=== PATIENT | female | born 1995 ===

== ENCOUNTER 2021-04-27 23:44 | Observation (INO) ==
[2021-04-28] MEDS ORDERED: SODIUM CHLORIDE 0.9% 1000ML 1,000 ML IV ONE (00:03)
[2021-04-28] MEDS ORDERED: METOCLOPRAMIDE HCL INJ 5 MG/ML 2 ML VIAL IV STA (00:03)
[2021-04-28] MEDS ORDERED: FAMOTIDINE 20MG IV PUSH 20 MG/5 ML SYR IV STA (00:03)
[2021-04-28] MEDS ORDERED: ACETAMINOPHEN 1,000 MG/100 ML VIAL IV STA (00:03)
[2021-04-28 00:29] LABS: Basophils # (auto) 0.02 K/uL (0-0.2); Basophils % (auto) 0.1 %; Eosinophils # (auto) 0.12 K/uL (0-0.5); Eosinophils % (auto) 0.9 %; Hematocrit (blood only) 38.5 % (37-47); Hemoglobin 13.1 g/dL (12.0-16.0); Immature Granulocytes # (auto) 0.02 K/uL (0.00-0.02); Immature Granulocytes % (auto) 0.1 %; Lymphocytes # (auto) 2.27 K/uL (1.2-3.4); Lymphocytes % (auto) 16.3 %; Mean Corpuscular Hemoglobin 28.5 pg (25-34); Mean Corpuscular Volume 83.7 fL (80-100); Mean Platelet Volume 11.8 fL (7.4-10.4); Monocytes # (auto) 0.82 K/uL (0.11-0.59); Monocytes % (auto) 5.9 %; Neutrophils # (auto) 10.65 K/uL (1.4-6.5); Neutrophils % (auto) 76.7 %; Platelet Count 439 K/uL (130-400); RDW Coefficient of Variation 13.4 % (11.5-14.5); RDW Standard Deviation 40.8 fL (36.4-46.3)
[2021-04-28 00:30] LABS: Appearance Urine Cloudy (Clear); Bacteria Urine Automated 2+ (Negative); Bilirubin Urine Negative (Negative); Blood Urine 2+ (Negative); Color Urine Yellow; Epithelial Cell Urine Auto >30 /lpf (0-5); Glucose Urine UA Negative (Negative); Ketones Urine Trace (Negative); Leukocyte Esterase Urine 2+ (Negative); Nitrite Urine Negative (Negative); Protein Urine Negative (Negative); RBC Urine Automated 0-4 /hpf (0-4); Specific Gravity Urine 1.017 (1.000-1.030); Urobilinogen Urine Negative (Negative); WBC Urine Automated >30 /hpf (0-5)
[2021-04-28 00:48] LABS: Alanine Aminotransferase 20 U/L (7-52); Albumin Globulin Ratio 1.3 (0.9-2); Albumin Level 4.4 gm/dl (3.4-5.0); Alkaline Phosphatase 76 U/L (34-104); Anion Gap 11 (3-11); Aspartate Aminotransferase 19 U/L (13-39); Bilirubin,Total 0.3 mg/dl (0.2-1.0); Blood Urea Nitrogen 5 mg/dl (6-23); Calcium 9.7 mg/dl (8.5-10.1); Carbon Dioxide 21 mmol/L (21-32); Chloride 103 mmol/L (98-107); Creatinine Clr Calc Pharmacy 176.8 ml/min; Est GFR (African American) > 150.0 ml/min; Est GFR (Non-African American) 136.4 ml/min; Globulin 3.4 gm/dl (2.5-4.0); Glucose 100 mg/dl (70-99(Fasting)); Lipase 11 U/L (11-82); Potassium 3.2 mmol/L (3.5-5.1); Sodium 135 mmol/L (136-145); Total Protein 7.8 gm/dl (6.0-8.3)
--- NOTE | 2021-04-28 01:19 | Emergency Department Note ---
History of Present Illness General Chief complaint: Flank Pain Stated complaint: SEVERE BACK AND ABD PAINS, 8 WKS PREG Time Seen by Provider: 04/27/21 23:57 History of Present Illness Maximum Pain Intensity: 1 This 25-year-old female patient currently about 8 weeks with twins pre sents to the emergency department today for evaluation of right upper quadrant and epigastric abdominal pain which radiates toward the back. This is began about 8 PM this evening. She ate a cold cut sandwich at about 4 PM. She states she did not have anything else to eat or drink before the onset of the pain. She reports nausea without vomiting. No history of similar symptoms in the past. She denies any fever or chills. No chest pain or shortness of breath. No dysuria, urinary frequency, urinary hesitancy, hematuria. She has not taken any medications for her symptoms. Allergies Allergy/AdvReac Type Severity Reaction Status Date / Time house dust Allergy Mild sneeze Verified 04/28/21 03:11 Past Med/Surg History Medical History First trimester Social History Smoking Status: Never smoker Second Hand Exposure: No; Do You Dip or Chew Tobacco: No; Tobacco Cessation Education Requested by Patient: No Hx Alcohol Use: No Hx Substance Use: No Preferred Language: Malian Communication Ability: Effective Foil Spinner Required: No Beliefs That Will Affect Care: None Current Living Situation: Significant Other Feels Safe at Home: Yes Safety Concerns: Feels Safe At This Time Assistive Devices: None Review of Systems A total of 10 systems reviewed and were otherwise negative Physical Exam Vital Signs Vital Signs - 24 hr 04/27/21 23:48 04/28/21 00:59 04/28/21 01:03 Temperature 36.5 C Temperature Source Temporal Artery Scan Pulse Rate 76 66 Pulse Rate [Left Finger] 66 Respiratory Rate 16 20 18 Respiratory Effort / Characteristics Non-Labored Spontaneous Respiratory Depth Normal Blood Pressure 135/81 Blood Pressure [Left Arm] 104/64 Blood Pressure Mean 99 Blood Pressure Mean [Left Arm] 77 Blood Pressure Position Sitting Pulse Oximetry 98 100 99 Oxygen Delivery Method Room Air Room Air Room Air Sepsis Recent Fever Within 48 Hours No Sepsis New/Unexplained Change in Mental Status N/A Sepsis Action Taken by Nursing No Action Required 04/28/21 01:30 04/28/21 02:41 Temperature Temperature Source Pulse Rate Pulse Rate [Left Finger] 66 66 Respiratory Rate 20 Respiratory Effort / Characteristics Respiratory Depth Blood Pressure Blood Pressure [Left Arm] 108/63 100/65 Blood Pressure Mean Blood Pressure Mean [Left Arm] 78 76 Blood Pressure Position Pulse Oximetry 97 93 Oxygen Delivery Method Room Air Room Air Sepsis Recent Fever Within 48 Hours Sepsis New/Unexplained Change in Mental Status Sepsis Action Taken by Nursing VITALS: Vitals are noted on the nurse's note and reviewed by myself. Vital signs stable. GENERAL: This is a 25-year-old female, in no acute distress, nondiaphoretic, well-developed well-nourished. SKIN: The skin was without rashes, erythema, edema, or bruising. There is no tenting of the skin. Capillary refill less than 2 seconds. HEAD: Normocephalic atraumatic. EYES: Conjunctivae without injection, sclerae without icterus. NECK: Supple without nuchal rigidity. No lymphadenopathy. No JVD. HEART: Regular rate and rhythm without murmurs gallops or rubs. LUNGS: Clear to auscultation bilaterally without wheezes, rales or rhonchi. No retractions or accessory muscle use. ABDOMEN: Positive bowel sounds x 4. Epigastric and RUQ tenderness to palpation. Abdomen otherwise soft, nontender, without masses or organomegaly. Looney's sign positive. No guarding or rebound tenderness. MUSCULOSKELETAL: No muscle atrophy, erythema, or edema noted. Full range of motion without joint tenderness in all extremities. No tenderness to palpation. Normal gait. Strength 5/5 throughout. NEURO: Patient was alert and oriented to person place and time. No focal neurological deficits. Course Course The patient was seen and evaluated as above. An order was placed for continuous cardiac monitoring. The monitor shows a normal sinus rhythm at a rate of 66 bpm. IV access obtained, labs drawn. Imaging performed and reviewed by myself and radiologist as noted. Labs reviewed by myself. I discussed the findings with the patient at bedside. I discussed the case with my attending. I discussed case with the manager rn case I discussed the case with Dr. Parr, [facility] physician. He requested I speak with OB in case they would wish to admit this patient in the setting of her . I discussed the case with Dr. Saravia, SANDWICH MACHINE OPERATOR broadcast operations technician. He recommends the patient be admitted to the medicine service and will be happy to consult due to the early . I notified Dr. Parr. He was agreeable and will see the patient for admission. Administered Medications Lactated Ringer's (Lr) 1,000 mls @ 80 mls/hr IV .[id number] ONE Stop: 04/28/21 15:19 Last Admin: 04/28/21 04:02 Dose: 80 mls/hr Documented by: [id number] Discontinued Medications Sodium Chloride (Nss 1000ml) 1,000 mls @ 999 mls/hr IV .[id number] ONE Stop: 04/28/21 01:03 Last Infusion: 04/28/21 02:14 Dose: 0 mls/hr Documented by: [id number] Admin: 04/28/21 00:33 Dose: 999 mls/hr Documented by: [id number] Acetaminophen (Ofirmev) 1,000 mg in 100 mls @ 400 mls/hr IV NOW STA Stop: 04/28/21 00:17 Last Infusion: 04/28/21 01:07 Dose: 0 mls/hr Documented by: [id number] Admin: 04/28/21 00:32 Dose: 400 mls/hr Documented by: [id number] Famotidine (Pepcid 20mg Iv Push) 20 mg in 5 mls @ 2.5 mls/min IV NOW STA Stop: 04/28/21 00:04 Last Admin: 04/28/21 00:32 Dose: 2.5 mls/min Documented by: [id number] Metoclopramide HCl (Metoclopramide Hcl Inj 5 Mg/Ml 2 Ml Vial) 10 mg IV NOW STA Stop: 04/28/21 00:04 Last Admin: 04/28/21 00:32 Dose: 10 mg Documented by: [id number] Potassium Chloride (Potassium Chloride Crtab 20 Meq Tabcr) 40 meq PO NOW STA Stop: 04/28/21 02:28 Last Admin: 04/28/21 02:39 Dose: 40 meq Documented by: [id number] Medical Decision Making Differential Diagnosis Etiologies such as appendicitis, diverticulitis, obstruction, inflammatory bowel disease, renal colic, PUD, biliary pathology, pancreatitis, mesenteric is chemia, aortic pathology, infections, genitourinary, UTI, perforated viscus, as well as others were entertained. Medical Records Attestation: I reviewed the patient's medical records. Home Medications Current Medication List: was personally reviewed by me Laboratory Data Attestation: I reviewed the patient's lab results. Mild leukocytosis of 13,000. No anemia or thrombocytopenia. Renal, hepatic function and electrolytes without significant abnormality. Lipase 11. Initial urinalysis appears to be contaminated specimen. Repeat urinalysis clear, trace leukocyte esterase, 1+ ketones, no bacteria. Result diagrams: 04/28/21 00:20 04/28/21 00:20 Lab Results 04/28/21 04/28/21 04/28/21 Range/Units 00:20 00:20 00:20 WBC 13.90 H (4.8-10.8) K/uL RBC 4.60 (4.2-5.4) M/uL Hgb 13.1 (12.0-16.0) g/dL Hct 38.5 (37-47) % MCV 83.7 (80-100) fL MCH 28.5 (25-34) pg MCHC 34.0 (32-36) g/dL RDW Std Deviation 40.8 (36.4-46.3) fL RDW Coeff of Santhosh 13.4 (11.5-14.5) % Plt Count 439 H (130-400) K/uL MPV 11.8 H (7.4-10.4) fL Immature Gran % (Auto) 0.1 % Neut % (Auto) 76.7 % Lymph % (Auto) 16.3 % [place] % (Auto) 5.9 % Eos % (Auto) 0.9 % Baso % (Auto) 0.1 % Neut # (Auto) 10.65 H (1.4-6.5) K/uL Lymph # (Auto) 2.27 (1.2-3.4) K/uL [place] # (Auto) 0.82 H (0.11-0.59) K/uL Eos # (Auto) 0.12 (0-0.5) K/uL Baso # (Auto) 0.02 (0-0.2) K/uL Immature Gran # (Auto) 0.02 (0.00-0.02) K/uL Sodium 135 L (136-145) mmol/L Potassium 3.2 L (3.5-5.1) mmol/L Chloride 103 (98-107) mmol/L Carbon Dioxide 21 (21-32) mmol/L Anion Gap 11 (3-11) BUN 5 L (6-23) mg/dl Creatinine 0.50 L (0.6-1.2) mg/dl Est Cr Clr Drug Dosing 176.8 ml/min Est GFR ( Amer) > 150.0 ml/min Est GFR (Non-Af Amer) 136.4 ml/min BUN/Creatinine Ratio 10.0 (10-20) Glucose 100 H (70-99(Fasting)) mg/dl Calcium 9.7 (8.5-10.1) mg/dl Magnesium (1.7-2.4) mg/dl Total Bilirubin 0.3 (0.2-1.0) mg/dl AST 19 (13-39) U/L ALT 20 (7-52) U/L Alkaline Phosphatase 76 (34-104) U/L Total Protein 7.8 (6.0-8.3) gm/dl Albumin 4.4 (3.4-5.0) gm/dl Globulin 3.4 (2.5-4.0) gm/dl Albumin/Globulin Ratio 1.3 (0.9-2) Lipase 11 (11-82) U/L Urine Color Yellow Urine Appearance Cloudy A (Clear) Urine pH 6.0 (4.5-7.5) Ur Specific [place] 1.017 (1.000-1.030) Urine Protein Negative (Negative) Urine Glucose (UA) Negative (Negative) Urine Ketones Trace H (Negative) Urine Blood 2+ H (Negative) Urine Nitrite Negative (Negative) Urine Bilirubin Negative (Negative) Urine Urobilinogen Negative (Negative) Ur Leukocyte Esterase 2+ H (Negative) Urine WBC (Auto) >30 H (0-5) /hpf Urine RBC (Auto) 0-4 (0-4) /hpf U Hyaline Cast (Auto) 5-10 H (0-5) /lpf U Epithel Cells (Auto) >30 H (0-5) /lpf Urine Bacteria (Auto) 2+ H (Negative) 04/28/21 Range/Units 00:20 WBC (4.8-10.8) K/uL RBC (4.2-5.4) M/uL Hgb (12.0-16.0) g/dL Hct (37-47) % MCV (80-100) fL MCH (25-34) pg MCHC (32-36) g/dL RDW Std Deviation (36.4-46.3) fL RDW Coeff of Santhosh (11.5-14.5) % Plt Count (130-400) K/uL MPV (7.4-10.4) fL Immature Gran % (Auto) % Neut % (Auto) % Lymph % (Auto) % [place] % (Auto) % Eos % (Auto) % Baso % (Auto) % Neut # (Auto) (1.4-6.5) K/uL Lymph # (Auto) (1.2-3.4) K/uL [place] # (Auto) (0.11-0.59) K/uL Eos # (Auto) (0-0.5) K/uL Baso # (Auto) (0-0.2) K/uL Immature Gran # (Auto) (0.00-0.02) K/uL Sodium (136-145) mmol/L Potassium (3.5-5.1) mmol/L Chloride (98-107) mmol/L Carbon Dioxide (21-32) mmol/L Anion Gap (3-11) BUN (6-23) mg/dl Creatinine (0.6-1.2) mg/dl Est Cr Clr Drug Dosing ml/min Est GFR ( Amer) ml/min Est GFR (Non-Af Amer) ml/min BUN/Creatinine Ratio (10-20) Glucose (70-99(Fasting)) mg/dl Calcium (8.5-10.1) mg/dl Magnesium 1.8 (1.7-2.4) mg/dl Total Bilirubin (0.2-1.0) mg/dl AST (13-39) U/L ALT (7-52) U/L Alkaline Phosphatase (34-104) U/L Total Protein (6.0-8.3) gm/dl Albumin (3.4-5.0) gm/dl Globulin (2.5-4.0) gm/dl Albumin/Globulin Ratio (0.9-2) Lipase (11-82) U/L Urine Color Urine Appearance (Clear) Urine pH (4.5-7.5) Ur Specific [place] (1.000-1.030) Urine Protein (Negative) Urine Glucose (UA) (Negative) Urine Ketones (Negative) Urine Blood (Negative) Urine Nitrite (Negative) Urine Bilirubin (Negative) Urine Urobilinogen (Negative) Ur Leukocyte Esterase (Negative) Urine WBC (Auto) (0-5) /hpf Urine RBC (Auto) (0-4) /hpf U Hyaline Cast (Auto) (0-5) /lpf U Epithel Cells (Auto) (0-5) /lpf Urine Bacteria (Auto) (Negative) Imaging Data Radiologist's Impression: US RUQ: Mildly distended gallbladder. No wall thickening or pericholecystic fluid. Gallstone in the fundus of the gallbladder. Sludge. Negative sonographic Looney sign. 1 cm echogenic focus in the any hepatis region. Unclear location. Possible stone within the cystic duct versus echogenic material within a bowel loop. Dilated common duct up to 8.9 mm. Correlate for biliary obstruction and could consider MRCP. No right hydronephrosis Radiologist: Matt Muniz M.D. Blood Pressure Blood Pressure Findings: Normal blood pressure MDM Narrative This 25-year-old female patient presents to the emergency department today in the setting of early for evaluation of epigastric and right upper quadrant abdominal pain. This began suddenly at around 8 PM. Patient's pain was controlled with IV acetaminophen. She was medicated with Pepcid and Reglan as well. Patient was hydrated IV fluids. Ultrasound concerning for possible stone within the cystic duct versus echogenic material within a bowel loop. Common bile duct is dilated up to 8.9 mm. The gallbladder is mildly distended with no thickening or pericholecystic fluid. There is a gallstone in the fundus of the gallbladder with sludge noted. Concern for gallbladder disease as the cause of the patient's symptoms. She will be admitted to the hospitalist service for ongoing evaluation of her symptoms. Please see hospitalist dictation regarding ongoing management and care of this patient. The chart was completed utilizing [employer] voice recognition software. Grammatical errors, random word insertions, pronoun errors, and incomplete sentences are an occasional consequence of this system due to software limitations, ambient noise, and hardware issues. Any formal questions or c oncerns about the content, text, or information contained within the body of this dictation should be directly addressed to the provider for clarification. Impression & Plan Biliary colic, Abdominal pain, Nausea & vomiting Discharge Plan Visit Data Chief Complaint: Flank Pain Stated Complaint: SEVERE BACK AND ABD PAINS, 8 WKS PREG ED Provider: Ashley Becerril ED Midlevel Provider: Marisol Marquez Discharge Problem: Biliary colic, Abdominal pain, Nausea & vomiting Patient Disposition: Admitted As Inpatient Discharge Instructions Interventions: ED Discharge Assessment Last Done: 04/28/21 04:52
[2021-04-28] MEDS ORDERED: POTASSIUM CHLORIDE CRTAB 20 MEQ TABCR PO STA (02:27)
--- NOTE | 2021-04-28 02:27 | History & Physical Report ---
Date of Service April 28, 2021 Assessment & Plan (1) Biliary colic: Plan: Rule out CBD obstruction No sepsis for now 8 weeks AOG Hypokalemia secondary to emesis OBS GMF Bowel rest for now MRCP if okay with OB service Surgery consult Re: Biliary colic (although conservative management likely to be advised given patient's first trimester .) Replace potassium DVT prophylaxis. SCDs Full code Patient partner requesting update from providers. Mr. Felipe Wei, contact #[phone]. Case discussed with Dr. Calero (watermaster career information specialist). Okay to go for MRI from OB standpoint. Text document was generated using [employer] voice recognition software. It may contain grammatical or spelling errors. Kindly contact undersigned for clarification of any documentation item in question. History of Present Illness Chief Complaint: Abdominal pain Primary Care Provider: Andrzej Gray MD (Patient has not met him.) History obtained from patient, family, and records. No significant medical history. Patient currently 8 weeks with twins. Outpatient ultrasound done last week at [facility] after positive outpatient test first week of April, as per patient. No prior checkups. Last night, patient noted achy upper abdominal discomfort going to the back followed by nausea and emesis. Had a cold cut sandwich in the afternoon. No chest pain, no S OB, no fever, no chills. No prior episodes in the past. Patient brought to the ER by her partner for evaluation. Medical History as above Surgical History : None Family History : DM Personal/Social history : Non-smoker, no EtOH intake, childcare center employee Allergies Allergy/AdvReac Type Severity Reaction Status Date / Time house dust Allergy Mild sneeze Verified 04/28/21 03:11 Past Med/Surg History Medical History First trimester Social History Smoking Status: Never smoker Second Hand Exposure: No; Do You Dip or Chew Tobacco: No; Tobacco Cessation Education Requested by Patient: No Hx Alcohol Use: No Hx Substance Use: No Preferred Language: Prydeinig Communication Ability: Effective Handy Man Required: No Beliefs That Will Affect Care: None Current Living Situation: Significant Other Feels Safe at Home: Yes Safety Concerns: Feels Safe At This Time Assistive Devices: None Review of Systems Review of Systems: As per HPI, all 10 systems reviewed, all other ROS negative Physical Exam Physical Exam: GENERAL: Comfortable, pleasant, obese, no respiratory distress SKIN: Normal color, warm HEENT: bespectacled, pink palpebral conjunctivae, no ptosis, dry buccal mucosa NECK : Supple, no tenderness CHEST : CTA, no tenderness HEART : RRR, no obvious murmurs ABDOMEN: Some distention, minimal epigastric tenderness EXTREMITIES : No LE swelling/tenderness, no other conspicuous deformities noted NEUROLOGIC : Coherent, no facial asymmetry, no other gross focality Results & Data Results & Data ([facility]) Vital Signs (Past 12 Hours) Vital Signs Temp Pulse Pulse Resp BP BP Pulse Ox 04/28/21 01:03 66 18 99 04/28/21 00:59 66 20 104/64 100 04/27/21 23:48 36.5 C 76 16 135/81 98 Laboratory Results Laboratory Results WBC 13.90 K/uL (4.8-10.8) H 04/28/21 00:20 RBC 4.60 M/uL (4.2-5.4) 04/28/21 00:20 Hgb 13.1 g/dL (12.0-16.0) 04/28/21 00:20 Hct 38.5 % (37-47) 04/28/21 00:20 MCV 83.7 fL (80-100) 04/28/21 00:20 MCH 28.5 pg (25-34) 04/28/21 00:20 MCHC 34.0 g/dL (32-36) 04/28/21 00:20 RDW Std Deviation 40.8 fL (36.4-46.3) 04/28/21 00:20 RDW Coeff of Santhosh 13.4 % (11.5-14.5) 04/28/21 00:20 Plt Count 439 K/uL (130-400) H 04/28/21 00:20 MPV 11.8 fL (7.4-10.4) H 04/28/21 00:20 Immature Gran % (Auto) 0.1 % 04/28/21 00:20 Neut % (Auto) 76.7 % 04/28/21 00:20 Lymph % (Auto) 16.3 % 04/28/21 00:20 [place] % (Auto) 5.9 % 04/28/21 00:20 Eos % (Auto) 0.9 % 04/28/21 00:20 Baso % (Auto) 0.1 % 04/28/21 00:20 Neut # (Auto) 10.65 K/uL (1.4-6.5) H 04/28/21 00:20 Lymph # (Auto) 2.27 K/uL (1.2-3.4) 04/28/21 00:20 [place] # (Auto) 0.82 K/uL (0.11-0.59) H 04/28/21 00:20 Eos # (Auto) 0.12 K/uL (0-0.5) 04/28/21 00:20 Baso # (Auto) 0.02 K/uL (0-0.2) 04/28/21 00:20 Immature Gran # (Auto) 0.02 K/uL (0.00-0.02) 04/28/21 00:20 Sodium 135 mmol/L (136-145) L 04/28/21 00:20 Potassium 3.2 mmol/L (3.5-5.1) L 04/28/21 00:20 Chloride 103 mmol/L (98-107) 04/28/21 00:20 Carbon Dioxide 21 mmol/L (21-32) 04/28/21 00:20 Anion Gap 11 (3-11) 04/28/21 00:20 BUN 5 mg/dl (6-23) L 04/28/21 00:20 Creatinine 0.50 mg/dl (0.6-1.2) L 04/28/21 00:20 Est Cr Clr Drug Dosing 176.8 ml/min 04/28/21 00:20 Est GFR ( Amer) > 150.0 ml/min 04/28/21 00:20 Est GFR (Non-Af Amer) 136.4 ml/min 04/28/21 00:20 BUN/Creatinine Ratio 10.0 (10-20) 04/28/21 00:20 Glucose 100 mg/dl (70-99(Fasting)) H 04/28/21 00:20 Calcium 9.7 mg/dl (8.5-10.1) 04/28/21 00:20 Total Bilirubin 0.3 mg/dl (0.2-1.0) 04/28/21 00:20 AST 19 U/L (13-39) 04/28/21 00:20 ALT 20 U/L (7-52) 04/28/21 00:20 Alkaline Phosphatase 76 U/L (34-104) 04/28/21 00:20 Total Protein 7.8 gm/dl (6.0-8.3) 04/28/21 00:20 Albumin 4.4 gm/dl (3.4-5.0) 04/28/21 00:20 Globulin 3.4 gm/dl (2.5-4.0) 04/28/21 00:20 Albumin/Globulin Ratio 1.3 (0.9-2) 04/28/21 00:20 Lipase 11 U/L (11-82) 04/28/21 00:20 Urine Color Yellow 04/28/21 00:20 Urine Appearance Cloudy (Clear) A 04/28/21 00:20 Urine pH 6.0 (4.5-7.5) 04/28/21 00:20 Ur Specific [place] 1.017 (1.000-1.030) 04/28/21 00:20 Urine Protein Negative (Negative) 04/28/21 00:20 Urine Glucose (UA) Negative (Negative) 04/28/21 00:20 Urine Ketones Trace (Negative) H 04/28/21 00:20 Urine Blood 2+ (Negative) H 04/28/21 00:20 Urine Nitrite Negative (Negative) 04/28/21 00:20 Urine Bilirubin Negative (Negative) 04/28/21 00:20 Urine Urobilinogen Negative (Negative) 04/28/21 00:20 Ur Leukocyte Esterase 2+ (Negative) H 04/28/21 00:20 Urine WBC (Auto) >30 /hpf (0-5) H 04/28/21 00:20 Urine RBC (Auto) 0-4 /hpf (0-4) 04/28/21 00:20 U Hyaline Cast (Auto) 5-10 /lpf (0-5) H 04/28/21 00:20 U Epithel Cells (Auto) >30 /lpf (0-5) H 04/28/21 00:20 Urine Bacteria (Auto) 2+ (Negative) H 04/28/21 00:20 Diagnostic Findings Gallbladder ultrasound initial read: Mildlydistended gallbladder. No wall thickening or pericholecystic fluid. Gallstone in the fundus of the gallbladder. Sludge. Negative sonographic Murphysign. 1 cmechogenic focus in the any hepatis region. Unclear location. Possible stone within the cystic duct versus echogenic material within a bowel loop. Dilated common duct up to 8.9 mm. Correlate for biliaryobstruction and could consider MRCP. No right hydronephrosis
[2021-04-28 02:49] LABS: Appearance Urine Clear (Clear); Bacteria Urine Automated Negative (Negative); Bilirubin Urine Negative (Negative); Blood Urine Negative (Negative); Cast Urine Automated 0 /lpf (0-5); Color Urine Yellow; Glucose Urine UA Negative (Negative); Ketones Urine 1+ (Negative); Leukocyte Esterase Urine Trace (Negative); Nitrite Urine Negative (Negative); Protein Urine Negative (Negative); RBC Urine Automated 0-4 /hpf (0-4); Specific Gravity Urine 1.009 (1.000-1.030); Urobilinogen Urine Negative (Negative)
[2021-04-28] MEDS ORDERED: ACETAMINOPHEN W/CODEINE #3 1 TAB PO PRN (02:50)
[2021-04-28] MEDS ORDERED: LACTATED RINGER'S 1,000 ML IV ONE (02:50)
[2021-04-28] MEDS ORDERED: ONDANSETRON INJ 2 MG/ML 2 ML VIAL IV PRN (02:50)
[2021-04-28] MEDS ORDERED: diphenhydrAMINE 50 MG/ML VIAL IV PRN (02:50)
[2021-04-28] MEDS ORDERED: MoRPHine SULFATE 2 MG/ML CARP IV PRN (02:50)
[2021-04-28] MEDS ORDERED: ACETAMINOPHEN 325 MG TAB PO PRN (05:17)
--- NOTE | 2021-04-28 07:13 | Ultrasound Report ---
US abdomen limited HISTORY: 25 years-old Female RUQ/epigastric pain acute right upper quadrant abdominal pain COMPARISON: None TECHNIQUE: Multiple real-time sonographic images of the abdominal right upper quadrant were obtained assessing grayscale appearance and color flow FINDINGS: The pancreas is mostly obscured by bowel gas. The liver is unremarkable. The gallbladder is distended measuring up to 12.1 cm in length and is sludge-filled. There is a shadowing 1.5 cm calculus within the gallbladder fundus. No gallbladder wall thickening or pericholecystic fluid identified. Negative sonographic Looney's sign. The common bile duct is dilated measuring up to 9 mm. There is a 1.1 cm echogenic shadowing structure noted within the any hepatis posterior to the gallbladder neck. The imaged right kidney is unremarkable without hydronephrosis. IMPRESSION: 1. Distended sludge-filled gallbladder with cholelithiasis. No definitive sonographic evidence of acu te cholecystitis. Findings could be correlated with nuclear medicine hepatobiliary scan. 2. Dilated common bile duct with possible stone within the cystic duct. Correlation with the ordered MRCP study of same day is recommended. ACT 112: Negative or not required by law. The above report was generated using voice recognition software. It may contain grammatical, syntax o r spelling errors. Electronically signed by: Deejay Canas M.D. 04/28/2021 7:12 AM
--- NOTE | 2021-04-28 11:32 | Surgery Consultation ---
Date of Consultation April 28, 2021 Assessment & Plan (1) Abdominal pain: (2) Nausea & vomiting: (3) Biliary colic: 25 year-old female who is currently 8 weeks with twins presented to ED last evening with upper abdominal pain, nausea and vomiting that started yesterday afternoon. Ate turkey, cheese sandwhich with mayonnaise and had peanut butter with apples prior. Mild leukocytosis of 13k. Ultrasound showing distended gallbladder with sludge and stones however no signs of acute cholecystitis, CBD dilated at 9 mm with questions of possible cyst duct stone. T. bili, lfts, alk phos all wnl. Abdominal examination completely benign this morning. Pain resolved. Plan: MRCP ordered this am given ultrasound findings Dr. Camilo discussed with patient that if she were to continue to have biliary colic and pain the best time to do surgery would be during her second trimester for less risk to the fetuses. Discussed she will need to adhere to strict low fat diet to prevent acute cholecystitis and recurrent biliary colic and pain. Will await MRCP results Continue medical management Dr. Lorenzo covering this weekend. Dr. Camilo has seen and examined pt, agrees with above. Supervising Physician Co-Signing Physician Notes I have seen and examined the patient and agree with the physical exam, assessment, and plan. Briefly, this is a 25-year-old woman, 8 weeks with twin gestation, who presents with what appears to be biliary colic. Her pain has completely resolved. MRCP demonstrated equivocal finding for acute cholecystitis. As her pain has completely resolved, I do not believe she has cholecystitis. We will continue medical management for now. History of Present Illness Reason for Consultation: biliary colic, abdominal pain Requesting Physician: Blas Drake MD Attending Physician: Brielle Romero DO History of Present Illness Gayle is a pleasant 25 year-old female who is 8 weeks with twins who presented to emergency department with complaint of RUQ abdominal pain with associated nausea and vomiting that started yesterday afternoon. States she ate a turkey,cheese sandwich with small amount of mayonnaise for lunch and then developed pain. Nothing seemed to make the pain better. Vomited on her way to the hospital. States she has had some vomiting with foods in past but unsure if this was due to being . No change in bowel habits. No difficulty urinating. She had an ultrasound which showed distended gallbladder with sludge and stones and dilated CBD at 9 mm with questions of possible stone in cystic duct. Mild leukocytosis of 13K. t.bili and lfts wnl. MRCP ordered for this morning. States she is feeling good now and the abdominal pain, nausea, and vomiting have completely resolved. States they gave her tylenol and she has not had any more pain. No fevers or chills. Allergies Allergy/AdvReac Type Severity Reaction Status Date / Time house dust Allergy Mild sneeze Verified 04/28/21 03:11 Patient History Medical History First trimester Social History Smoking Status: Never smoker Second Hand Exposure: No; Do You Dip or Chew Tobacco: No; Tobacco Cessation Education Requested by Patient: No Hx Alcohol Use: No Hx Substance Use: No Preferred Language: Beninese Communication Ability: Effective Certified Flight Instructor Required: No Beliefs That Will Affect Care: None Current Living Situation: Significant Other Feels Safe at Home: Yes Safety Concerns: Feels Safe At This Time Assistive Devices: None Review of Systems Review of Systems: All systems reviewed & are unremarkable except as noted in HPI & below Physical Exam Constitutional: WD/WN, vitals as above no acute distress and not ill appearing Neck: normal visual inspection and trachea midline Respiratory: normal respiratory effort, lungs clear to auscultation Cardiovascular: RRR, no murmur, no edema Gastrointestinal (Abdomen): Inspection/Auscultation: abdomen normal to inspection; abdomen not distended Percussion/Palpation: abdomen soft; abdomen nontender, no guarding and abdomen not rigid Skin: no rashes, warm and dry no jaundice Psychiatric: A+Ox3, euthymic affect Results & Data ([facility]) Vital Signs (Past 12 Hours) Vital Signs Temp Pulse Pulse Resp BP BP Pulse Ox 04/28/21 07:30 36.8 C 67 16 99/63 L 98 04/28/21 05:23 36.6 C 66 16 122/77 100 04/28/21 05:18 36.6 C 66 16 122/77 100 04/28/21 02:41 66 20 100/65 93 04/28/21 01:30 66 108/63 97 04/28/21 01:03 66 18 99 04/28/21 00:59 66 20 104/64 100 04/27/21 23:48 36.5 C 76 16 135/81 98 Laboratory Results 04/28/21 04/28/21 04/28/21 Range/Units Unknown Unknown 00:20 WBC (4.8-10.8) K/uL RBC (4.2-5.4) M/uL Hgb (12.0-16.0) g/dL Hct (37-47) % MCV (80-100) fL MCH (25-34) pg MCHC (32-36) g/dL RDW Std Deviation (36.4-46.3) fL RDW Coeff of Santhosh (11.5-14.5) % Plt Count (130-400) K/uL MPV (7.4-10.4) fL Immature Gran % (Auto) % Neut % (Auto) % Lymph % (Auto) % [place] % (Auto) % Eos % (Auto) % Baso % (Auto) % Neut # (Auto) (1.4-6.5) K/uL Lymph # (Auto) (1.2-3.4) K/uL [place] # (Auto) (0.11-0.59) K/uL Eos # (Auto) (0-0.5) K/uL Baso # (Auto) (0-0.2) K/uL Immature Gran # (Auto) (0.00-0.02) K/uL Sodium (136-145) mmol/L Potassium (3.5-5.1) mmol/L Chloride (98-107) mmol/L Carbon Dioxide (21-32) mmol/L Anion Gap (3-11) BUN (6-23) mg/dl Creatinine (0.6-1.2) mg/dl Est Cr Clr Drug Dosing ml/min Est GFR ( Amer) ml/min Est GFR (Non-Af Amer) ml/min BUN/Creatinine Ratio (10-20) Glucose (70-99(Fasting)) mg/dl Calcium (8.5-10.1) mg/dl Magnesium 1.8 (1.7-2.4) mg/dl Total Bilirubin (0.2-1.0) mg/dl AST (13-39) U/L ALT (7-52) U/L Alkaline Phosphatase (34-104) U/L Total Protein (6.0-8.3) gm/dl Albumin (3.4-5.0) gm/dl Globulin (2.5-4.0) gm/dl Albumin/Globulin Ratio (0.9-2) Lipase (11-82) U/L Urine Color Yellow Urine Appearance Clear (Clear) Urine pH 6.0 (4.5-7.5) Ur Specific [place] 1.009 (1.000-1.030) Urine Protein Negative (Negative) Urine Glucose (UA) Negative (Negative) Urine Ketones 1+ H (Negative) Urine Blood Negative (Negative) Urine Nitrite Negative (Negative) Urine Bilirubin Negative (Negative) Urine Urobilinogen Negative (Negative) Ur Leukocyte Esterase Trace H (Negative) Urine WBC (Auto) 1-5 (0-5) /hpf Urine RBC (Auto) 0-4 (0-4) /hpf U Hyaline Cast (Auto) 0 (0-5) /lpf U Epithel Cells (Auto) 10-20 H (0-5) /lpf Urine Bacteria (Auto) Negative (Negative) SARS-CoV-2, RNA, NAAT NEGATIVE (NEGATIVE) 04/28/21 04/28/21 04/28/21 Range/Units 00:20 00:20 00:20 WBC 13.90 H (4.8-10.8) K/uL RBC 4.60 (4.2-5.4) M/uL Hgb 13.1 (12.0-16.0) g/dL Hct 38.5 (37-47) % MCV 83.7 (80-100) fL MCH 28.5 (25-34) pg MCHC 34.0 (32-36) g/dL RDW Std Deviation 40.8 (36.4-46.3) fL RDW Coeff of Santhosh 13.4 (11.5-14.5) % Plt Count 439 H (130-400) K/uL MPV 11.8 H (7.4-10.4) fL Immature Gran % (Auto) 0.1 % Neut % (Auto) 76.7 % Lymph % (Auto) 16.3 % [place] % (Auto) 5.9 % Eos % (Auto) 0.9 % Baso % (Auto) 0.1 % Neut # (Auto) 10.65 H (1.4-6.5) K/uL Lymph # (Auto) 2.27 (1.2-3.4) K/uL [place] # (Auto) 0.82 H (0.11-0.59) K/uL Eos # (Auto) 0.12 (0-0.5) K/uL Baso # (Auto) 0.02 (0-0.2) K/uL Immature Gran # (Auto) 0.02 (0.00-0.02) K/uL Sodium 135 L (136-145) mmol/L Potassium 3.2 L (3.5-5.1) mmol/L Chloride 103 (98-107) mmol/L Carbon Dioxide 21 (21-32) mmol/L Anion Gap 11 (3-11) BUN 5 L (6-23) mg/dl Creatinine 0.50 L (0.6-1.2) mg/dl Est Cr Clr Drug Dosing 176.8 ml/min Est GFR ( Amer) > 150.0 ml/min Est GFR (Non-Af Amer) 136.4 ml/min BUN/Creatinine Ratio 10.0 (10-20) Glucose 100 H (70-99(Fasting)) mg/dl Calcium 9.7 (8.5-10.1) mg/dl Magnesium (1.7-2.4) mg/dl Total Bilirubin 0.3 (0.2-1.0) mg/dl AST 19 (13-39) U/L ALT 20 (7-52) U/L Alkaline Phosphatase 76 (34-104) U/L Total Protein 7.8 (6.0-8.3) gm/dl Albumin 4.4 (3.4-5.0) gm/dl Globulin 3.4 (2.5-4.0) gm/dl Albumin/Globulin Ratio 1.3 (0.9-2) Lipase 11 (11-82) U/L Urine Color Yellow Urine Appearance Cloudy A (Clear) Urine pH 6.0 (4.5-7.5) Ur Specific [place] 1.017 (1.000-1.030) Urine Protein Negative (Negative) Urine Glucose (UA) Negative (Negative) Urine Ketones Trace H (Negative) Urine Blood 2+ H (Negative) Urine Nitrite Negative (Negative) Urine Bilirubin Negative (Negative) Urine Urobilinogen Negative (Negative) Ur Leukocyte Esterase 2+ H (Negative) Urine WBC (Auto) >30 H (0-5) /hpf Urine RBC (Auto) 0-4 (0-4) /hpf U Hyaline Cast (Auto) 5-10 H (0-5) /lpf U Epithel Cells (Auto) >30 H (0-5) /lpf Urine Bacteria (Auto) 2+ H (Negative) SARS-CoV-2, RNA, NAAT (NEGATIVE) Diagnostic Findings US abdomen limited HISTORY: 25 years-old Female RUQ/epigastric pain acute right upper quadrant abdominal pain COMPARISON: None TECHNIQUE: Multiple real-time sonographic images of the abdominal right upper quadrant were obtained assessing grayscale appearance and color flow FINDINGS: The pancreas is mostly obscured by bowel gas. The liver is unremarkable. The gallbladder is distended measuring up to 12.1 cm in length and is sludge-filled. There is a shadowing 1.5 cm calculus within the gallbladder fundus. No gallbladder wall thickening or pericholecystic fluid identified. Negative sonographic Looney's sign. The common bile duct is dilated measuring up to 9 mm. There is a 1.1 cm echogenic shadowing structure noted within the any hepatis posterior to the gallbladder neck. The imaged right kidney is unremarkable without hydronephrosis. IMPRESSION: 1. Distended sludge-filled gallbladder with cholelithiasis. No definitive sonographic evidence of acute cholecystitis. Findings could be correlated with nuclear medicine hepatobiliary scan. 2. Dilated common bile duct with possible stone within the cystic duct. Correlation with the ordered MRCP study of same day is recommended. (1) Nausea & vomiting Vomiting type: bilious vomiting Qualified Code(s): R11.14 - Bilious vomiting (2) Abdominal pain Abdominal location: epigastric Qualified Code(s): R10.13 - Epigastric pain
--- NOTE | 2021-04-28 13:43 | Magnetic Resonance Report ---
MRCP CLINICAL HISTORY: Abnormal ultrasound. Biliary colic. . COMPARISON STUDY: Abdominal ultrasound dated 04/28/2021. TECHNIQUE: Abdominal MRCP is performed utilizing T2-weighted sequences in the axial and coronal plane s. IV contrast was not administered for this examination. 3-D reformats are created and assessed. FINDINGS: The gallbladder is distended. Gallbladder wall appears thickened and edematous and there is trace pericholecystic fluid. There are at least 2 large gallstones in the fundal region measuring up to 16 mm. There is no significant intra- or extrahepatic biliary ductal dilatation. The common hepat ic duct measures up to 8mm. The common bile duct tapers normally, measuring up to 5.5 mm in diameter. No intraluminal filling defects are seen to suggest choledocholithiasis. The pancreatic duct is norm al in caliber. The unenhanced liver, spleen, adrenal glands, and kidneys are grossly normal. The panc reas is normal as visualized. The abdominal aorta is normal in caliber. No abdominal ascites is ident ified. There is no evidence of bowel obstruction. No pleural effusion is seen. IMPRESSION: 1. Gallstones within a distended and abnormal appearing gallbladder. Acute cholecystitis is not exclu ded. 2. There is no significant intra- or extrahepatic biliary ductal dilatation and no evidence of choled ocholithiasis. Dictated: 04/28/2021 1:18 PM Transcribed: 04/28/2021 1:41 PM [facility] [id number] [facility] Electronically signed by: Kenny Dale M.D. 04/28/2021 1:42 PM
[2021-04-28] MEDS ORDERED: LACTATED RINGER'S 1,000 ML IV SCH (15:30)
[2021-04-28] MEDS: AMPICILLIN/SULBACTAM SOD 3,000 MG in 0.9 % SODIUM CHLORIDE 100 ML IV SCH ×2 (16:57→22:07)
--- NOTE | 2021-04-28 18:06 | Hospitalist Progress Note ---
Date of Service April 28, 2021 Assessment & Plan (1) Biliary colic: (2) Abnormal magnetic resonance cholangiopancreatography (MRCP): Plan: This is a 25yo F who is approximately 8 weeks with twins presenting with upper abdominal pain, nausea and vomiting that started yesterday afternoon and have since resolved. Mild leukocytosis of 13k Abdominal ultrasound showing distended gallbladder with sludge and stones however no signs of acute cholecystitis, CBD dilated at 9 mm with questions of possible cyst duct stone MRCP - gallstones within a distended and abnormal appearing gallbladder. Acute cholecystitis is not excluded. No significant intra- or extrahepatic biliary ductal dilatation and no e/o choledocholithiasis Discussed with surgery - recommend advancing to low fat diet, starting empiric Unasyn for abx coverage at least overnight in setting of possible acute cholecystitis seen on imaging. Repeat CBC in AM Would like to avoid surgical intervention during first trimester with twin given risk to fetuses Appreciate further surgical recommendations on continuation of abx Outpatient surgical follow up scheduled with Dr. Camilo (3) Hypokalemia: Plan: Replaced. Repeat BMP in AM Patient seen in collaboration with Dr. Romero. Please see addendum. (4) Twin gestation in first trimester: (5) Cholelithiasis: Admission and Anticipated Discharge Date Admission Date: April 28, 2021 Supervising Physician Co-Signing Physician Notes I have seen and examined the patient and have discussed the case with the provider above. I agree with the assessment and plan as stated. 25 yo female, currently 8 weeks gestation with twins presents with biliary colic. She is afebrile and has been NPO and feeling well without pain since admission. She has no history of RUQ pain in the past prior to this . WBC is 13, however, this can be normal in , and doesn't necessarily indicate infection. LFTs are not elevated and abdomen is soft, nondistended and nontender. MRCP reveals gallstones within a distended and abnormal appearing gallbladder. Acute cholecystitis is not excluded. Unasyn started and diet restarted. She doesn't not appear to have infection per surgery. Will follow her progress overnight with addition of diet. DO Nick Subjective Seen and examined in 308-1 this morning. Nausea and abdominal pain completely resolved, resting comfortably. No fever, chills, CP, SOB, dysuria, diarrhea or constipation. Recently found out she is expecting twins and is approx. 8 weeks from ultrasound done at clinic. Review of Systems Review of Systems: At least ten systems reviewed and negative except as noted in the HPI. Physical Exam Physical Exam: Gen: WD/WN, NAD, sitting in bed, A&Ox3 HEENT: Normocephalic, atraumatic, conjunctivae moist, sclerae anicteric, mucous membranes moist Lung: Clear to Auscultation bilaterally, no wheezes/rales/rhonchi Heart: Regular rate, regular rhythm, no murmurs, rubs, or gallops Abdomen: Soft, NT, ND +BS x 4 Extremities: no edema Skin: Warm, no rash Results & Data Results & Data ([facility]) Vital Signs (Past 12 Hours) Vital Signs Temp Pulse Resp BP Pulse Ox 04/28/21 14:04 36.5 C 65 99/61 L 100 04/28/21 07:30 36.8 C 67 16 99/63 L 98 Laboratory Results Short CBC 04/28/21 Range/Units 00:20 WBC 13.90 H (4.8-10.8) K/uL Hgb 13.1 (12.0-16.0) g/dL Hct 38.5 (37-47) % Plt Count 439 H (130-400) K/uL BMP 04/28/21 00:20 Sodium 135 L Potassium 3.2 L Chloride 103 Carbon Dioxide 21 BUN 5 L Creatinine 0.50 L Glucose 100 H Calcium 9.7 Liver Function 04/28/21 Range/Units 00:20 Total Bilirubin 0.3 (0.2-1.0) mg/dl AST 19 (13-39) U/L ALT 20 (7-52) U/L Alkaline Phosphatase 76 (34-104) U/L Albumin 4.4 (3.4-5.0) gm/dl Urine 04/28/21 04/28/21 Range/Units 00:20 Unknown Urine Color Yellow Yellow Urine Appearance Cloudy A Clear (Clear) Urine pH 6.0 6.0 (4.5-7.5) Ur Specific [place] 1.017 1.009 (1.000-1.030) Urine Protein Negative Negative (Negative) Urine Glucose (UA) Negative Negative (Negative) Diagnostic Findings Abdomen Ultrasound 04/28/21 00:04 US abdomen limited HISTORY: 25 years-old Female RUQ/epigastric pain acute right upper quadrant abdominal pain COMPARISON: None TECHNIQUE: Multiple real-time sonographic images of the abdominal right upper quadrant were obtained assessing grayscale appearance and color flow FINDINGS: The pancreas is mostly obscured by bowel gas. The liver is unremarkable. The gallbladder is distended measuring up to 12.1 cm in length and is sludge-filled. There is a shadowing 1.5 cm calculus within the gallbladder fundus. No gallbladder wall thickening or pericholecystic fluid identified. Negative sonographic Looney's sign. The common bile duct is dilated measuring up to 9 mm. There is a 1.1 cm echogenic shadowing structure noted within the any hepatis posterior to the gallbladder neck. The imaged right kidney is unremarkable without hydronephrosis. IMPRESSION: 1. Distended sludge-filled gallbladder with cholelithiasis. No definitive sonographic evidence of acute cholecystitis. Findings could be correlated with nuclear medicine hepatobiliary scan. 2. Dilated common bile duct with possible stone within the cystic duct. Correlation with the ordered MRCP study of same day is recommended. ACT 112: Negative or not required by law. The above report was generated using voice recognition software. It may contain grammatical, syntax or spelling errors. Electronically signed by: Deejay Canas M.D. 04/28/2021 7:12 AM Cholangiopancreatography MRI 04/28/21 11:17 MRCP CLINICAL HISTORY: Abnormal ultrasound. Biliary colic. . COMPARISON STUDY: Abdominal ultrasound dated 04/28/2021. TECHNIQUE: Abdominal MRCP is performed utilizing T2-weighted sequences in the axial and coronal planes. IV contrast was not administered for this examination. 3-D reformats are created and assessed. FINDINGS: The gallbladder is distended. Gallbladder wall appears thickened and edematous and there is trace pericholecystic fluid. There are at least 2 large gallstones in the fundal region measuring up to 16 mm. There is no significant intra- or extrahepatic biliary ductal dilatation. The common hepatic duct measures up to 8mm. The common bile duct tapers normally, measuring up to 5.5 mm in diameter. No intraluminal filling defects are seen to suggest choledocholithiasis. The pancreatic duct is normal in caliber. The unenhanced liver, spleen, adrenal glands, and kidneys are grossly normal. The pancreas is normal as visualized. The abdominal aorta is normal in caliber. No abdominal ascites is identified. There is no evidence of bowel obstruction. No pleural effusion is seen. IMPRESSION: 1. Gallstones within a distended and abnormal appearing gallbladder. Acute cholecystitis is not excluded. 2. There is no significant intra- or extrahepatic biliary ductal dilatation and no evidence of choledocholithiasis. Dictated: 04/28/2021 1:18 PM Transcribed: 04/28/2021 1:41 PM [facility] [id number] [facility] Electronically signed by: Kenny Dale M.D. 04/28/2021 1:42 PM
--- NOTE | 2021-04-28 20:51 | OB/GYN Consultation ---
Date of Consultation April 28, 2021 Assessment & Plan (1) Twin gestation in first trimester: Pt seen and examined Biliary colic Twin gestation at 8+ weeks (as Per Pt)- Pt seen at resource in [facility] No sonogram record in chart OB sono ordered No obstetric action needed at this time Pt will f/u as out Pt. in office after discharge to establish care for Pt on vitamins at home History of Present Illness Attending Physician: Brielle Romero DO Allergies Allergy/AdvReac Type Severity Reaction Status Date / Time house dust Allergy Mild sneeze Verified 04/28/21 03:11 Patient History Medical History First trimester Social History Smoking Status: Never smoker Second Hand Exposure: No; Do You Dip or Chew Tobacco: No; Tobacco Cessation Education Requested by Patient: No Hx Alcohol Use: No Hx Substance Use: No Preferred Language: Ukrainian Communication Ability: Effective Midwife Practitioner Required: No Beliefs That Will Affect Care: None Current Living Situation: Significant Other Feels Safe at Home: Yes Safety Concerns: Feels Safe At This Time Assistive Devices: None Results & Data ([place]) Vital Signs (Past 12 Hours) Vital Signs Temp Pulse BP Pulse Ox 04/28/21 14:04 36.5 C 65 99/61 L 100
[2021-04-29] MEDS: AMPICILLIN/SULBACTAM SOD 3,000 MG in 0.9 % SODIUM CHLORIDE 100 ML IV SCH ×2 (04:20→10:41)
--- NOTE | 2021-04-29 05:59 | Consultation Report ---
This is a [facility] consult. HISTORY OF PRESENT ILLNESS: The patient is a 25-year-old G1, P0 who presented to the Emergency Room on 04/27/2021. The patient presented to the Emergency Room with complaints of back and right upper q uadrant pain. She was worked up in the ER and was diagnosed with biliary colic. The patient also re ported her last menstrual period was 02/19/2021 and had been seen at the resource clinic on 04/20/2021 where she was also diagnosed with twin gestation at 7 weeks 3 days on ____. The patient is on medicine service. She has been seen by general surgery. An MRI has been done. The patient pr esently is on treatment with diet and antibiotic therapy. [facility] was called because of the patient's st atus of twin gestation at 8 weeks. On discussion with the patient, the patient has not seen any OB/G YN since the diagnosis. She was taking [id number] vitamins, which she repor ts was making her sick, so she stopped taking it. She denies any shortness of breath, chills, fever, nausea, vomiting or bleeding. PAST MEDICAL HISTORY: None. PAST SURGICAL HISTORY: None. SOCIAL HISTORY: The patient denies tobacco, drug or alcohol use. FAMILY HISTORY: Noncontributory. PHYSICAL EXAMINATION: GENERAL: A well-developed, well-nourished female in no acute distress. VITAL SIGNS: Blood pressure is 99/61, pulse 65, respirations 16, temperature 36.5. HEART: S1 and S2, regular rhythm and rate. LUNGS: Clear to auscultation bilaterally. ABDOMEN: Nontender, nondistended. EXTREMITIES: No cyanosis, clubbing, or edema. PELVIC: Exam is deferred at the moment. ASSESSMENT AND PLAN: 1. A 25-year-old G1, P0, admitted on medicine service for biliary colic. The patient is presently u ndergoing treatment with diet, and antibiotics. General surgery is on consult. 2. Term at 8 weeks, as reported by the patient. She was seen at resource center where an ultrasound was done. Results of ultrasound are not available for review. Plan therefore i s to order an ultrasound while the patient is in the hospital. The patient is recommended to continu e taking vitamins and upon discharge, will call the office where she will be scheduled for h er care. Job ID: [id number]
[2021-04-29 06:02] LABS: Basophils # (auto) 0.02 K/uL (0-0.2); Basophils % (auto) 0.2 %; Eosinophils # (auto) 0.07 K/uL (0-0.5); Eosinophils % (auto) 0.8 %; Hematocrit (blood only) 35.4 % (37-47); Hemoglobin 11.8 g/dL (12.0-16.0); Immature Granulocytes # (auto) 0.01 K/uL (0.00-0.02); Immature Granulocytes % (auto) 0.1 %; Lymphocytes # (auto) 1.79 K/uL (1.2-3.4); Lymphocytes % (auto) 19.5 %; Mean Corpuscular Hemoglobin 27.9 pg (25-34); Mean Corpuscular Hgb Conc 33.3 g/dL (32-36); Mean Corpuscular Volume 83.7 fL (80-100); Mean Platelet Volume 11.6 fL (7.4-10.4); Monocytes # (auto) 0.71 K/uL (0.11-0.59); Monocytes % (auto) 7.7 %; Neutrophils # (auto) 6.58 K/uL (1.4-6.5); Neutrophils % (auto) 71.7 %; Platelet Count 356 K/uL (130-400); RDW Coefficient of Variation 13.7 % (11.5-14.5); RDW Standard Deviation 41.9 fL (36.4-46.3); Red Blood Count 4.23 M/uL (4.2-5.4); White Blood Count 9.18 K/uL (4.8-10.8)
[2021-04-29 06:22] LABS: Alanine Aminotransferase 19 U/L (7-52); Albumin Globulin Ratio 1.3 (0.9-2); Albumin Level 3.7 gm/dl (3.4-5.0); Alkaline Phosphatase 69 U/L (34-104); Anion Gap 8 (3-11); Aspartate Aminotransferase 19 U/L (13-39); BUN Creatinine Ratio 11.4 (10-20); Bilirubin,Total 0.7 mg/dl (0.2-1.0); Blood Urea Nitrogen 5 mg/dl (6-23); Calcium 8.6 mg/dl (8.5-10.1); Carbon Dioxide 21 mmol/L (21-32); Chloride 106 mmol/L (98-107); Est GFR (African American) > 150.0 ml/min; Est GFR (Non-African American) 142.3 ml/min; Globulin 2.8 gm/dl (2.5-4.0); Glucose 79 mg/dl (70-99(Fasting)); Potassium 3.4 mmol/L (3.5-5.1); Sodium 135 mmol/L (136-145); Total Protein 6.5 gm/dl (6.0-8.3)
--- NOTE | 2021-04-29 07:53 | Surgery Progress Note ---
Date of Service April 29, 2021 Assessment & Plan (1) Biliary colic: Plan: Weekend coverage for [facility] surgeons I reviewed the MRCP with the patient She is completely asymptomatic at this time was able to tolerate a diet At this point she can be discharged at the discretion of the primary service and follow-up with Dr. Camilo as his service as outlined before I did advise the patient to avoid fatty foods spicy food greasy foods and anything along the cabbage family All question answered Plan: Patient to be discharged at discretion of primary service Instructions were given regarding oral intake and follow-up with Dr. Camilo the surgeon in a week or so Admission and Anticipated Discharge Date Admission Date: April 28, 2021 Subjective Feels fine has no abdominal discomfort Physical Exam Physical Exam: Laying in bed comfortably without any distress The abdomen is completely benign no right upper quadrant guarding or tenderness Results & Data ([facility]) Vital Signs (Past 12 Hours) Vital Signs Temp Pulse Pulse Resp BP Pulse Ox 04/29/21 07:09 36.8 C 66 20 99/63 L 99 04/28/21 22:00 36.8 C 72 14 131/80 100 PG Care Time/CCT Total # of Minutes Spent Total Time Spent with Patient: Total time spent is greater than 50% in coordination of care (as documented) at patient's floor/unit and/or counseling patient: Coding Level of Care Code 92620 Subseq Hosp Care Lvl 3 Diagnoses Biliary colic K80.50
--- NOTE | 2021-04-29 10:13 | Ultrasound Report ---
US OB <= 14 weeks fetus HISTORY: 25 years-old Female twin at 8+ weeks follow-up study in a patient with reportedly known twin COMPARISON: None TECHNIQUE: Multiple real-time sonographic images of the deep pelvic structures were obtained transabd ominally assessing grayscale appearance, color and spectral flow with M-mode analysis FINDINGS: Intrauterine twin gestation which appears to be dichorionic and diamnionic. Twin A gestational sac measures 3.2 cm. The yolk sac measures 0.42 cm. The crown-rump length measures 2.22 cm correlating with estimated gestational age of 8 weeks and 6 days. heart rate measured at 178 bpm. Twin B gestational sac measures 3.0 cm. The yolk sac measures 0.37 cm. The crown-rump length measures 2.06 cm correlating with estimated gestational age of 8 weeks and 5 days. heart rate is measur ed at 178 bpm. The left ovary measures 3.5 x 1.9 x 2.0 cm with arterial inflow and venous outflow. The right ovary m easures 3.8 x 3.2 x 1.7 cm with arterial inflow and venous outflow. No adnexal mass lesions. IMPRESSION: 1. Living intrauterine dichorionic diamnionic twin gestation. 2. Unremarkable sonographic appearance of the ovaries. ACT 112: Negative or not required by law. The above report was generated using voice recognition software. It may contain grammatical, syntax o r spelling errors. Electronically signed by: Deejay Canas M.D. 04/29/2021 10:12 AM
--- NOTE | 2021-04-29 11:05 | Discharge Summary ---
Date of Service April 29, 2021 Admission HPI Per Admitting Provider History obtained from patient, family, and records. No significant medical history. Patient currently 8 weeks with twins. Outpatient ultrasound done last week at [facility] after positive outpatient test first week of April, as per patient. No prior checkups. Last night, patient noted achy upper abdominal discomfort going to the back followed by nausea and emesis. Had a cold cut sandwich in the afternoon. No chest pain, no S OB, no fever, no chills. No prior episodes in the past. Patient brought to the ER by her partner for evaluation. Medical History as above Surgical History : None Family History : DM Personal/Social history : Non-smoker, no EtOH intake, childcare center employee Admission Exam Per Admitting Provider GENERAL: Comfortable, pleasant, obese, no respiratory distress SKIN: Normal color, warm HEENT: bespectacled, pink palpebral conjunctivae, no ptosis, dry buccal mucosa NECK : Supple, no tenderness CHEST : CTA, no tenderness HEART : RRR, no obvious murmurs ABDOMEN: Some distention, minimal epigastric tenderness EXTREMITIES : No LE swelling/tenderness, no other conspicuous deformities noted NEUROLOGIC : Coherent, no facial asymmetry, no other gross focality Principal Diagnosis Biliary colic cholelithiasis Twin gestation in first trimester Discharge Exam Gen: WD/WN, NAD, sitting in bed, A&Ox3 HEENT: Normocephalic, atraumatic, conjunctivae moist, sclerae anicteric, mucous membranes moist Lung: Clear to Auscultation bilaterally, no wheezes/rales/rhonchi Heart: Regular rate, regular rhythm, no murmurs, rubs, or gallops Abdomen: Soft, NT, ND +BS x 4 Extremities: no edema Skin: Warm, no rash Discharge Data Allergies Allergy/AdvReac Type Severity Reaction Status Date / Time house dust Allergy Mild sneeze Verified 04/28/21 03:11 Consultations 04/28/21 01:56 ED Decision to Admit Stat 04/28/21 02:48 Consult Obstetrics Routine 04/28/21 05:17 Consult General Surgery Routine Ordered Studies Hospital Course (1) Biliary colic: (2) Abnormal magnetic resonance cholangiopancreatography (MRCP): (3) Hypokalemia: (4) Twin gestation in first trimester: (5) Cholelithiasis: 25 yo female with a twin at 8 weeks gestation presents with biliary colic.MRCP revealed a distended gallbladder which appeared thickened and edematous with two large gallstones but no evidence of choledocholithiasis.Pancreatic duct was normal in caliber.Although she had severe pain prior to arrival, this was not present during her admission.On admission she was afebrile but had a leukocytosis of 13K.She was started on Unasyn and general surgery was consulted.There was no transaminase elevation and her abdomen remained soft, nondistended and nontender.She was able to eat without pain.Given the elevated risk of any HIDA scan or surgical intervention to the fetuses during her first trimester and that she remained well-appearing for over 24 hours and was tolerating food, further workup or intervention was deferred.Close surgical follow-up as outpatient was recommended.While in the hospital, she also established obstetric care with Dr. Aguilar.No obstetric action was needed, and she was notably already taking vitamins at home.A ultrasound was performed which confirmed the intrauterine twin gestation.She was discharged in stable condition and advised to avoid fatty foods.She was notfelt to need any antibiotic therapy on discharge. Total Time Total Time Spent Total Time Spent (In Minutes): 60 Discharge Plan Discharge Items Patient Disposition: Home - Self-Care Reason For Visit: ABD PAIN Discharge Diagnosis: Biliary colic cholelithiasis Twin gestation in first trimester Condition on Discharge: Good Activity: Resume your previous activity Non-emergency contact: Primary Care Provider Call non-emergency contact if: you have any medication questions, your symptoms worsen, your pain is not controlled, your pain is worsening, your pain is unusual for you, your pain is concerning for you and you have a fever Follow-up/Referrals: Juan Luis Camilo MD [Physician] - Andrzej Gray MD [Primary Care Provider] - Diet: Low Fat Addtl Attending Provider Instructions: Please adhere to a low fat diet. Please followup with [facility] as instructed for establishment of routine care. Please follow-up with Dr. Juan Luis Camilo, general surgeon, for follow-up on your gallbladder and abdominal pain. You were found to have gallstones with an abnormal appearing gallbladder but no evidence of active infection or blocked duct that would require immediate intervention. Followup to ensure you are still doing well, considering repeat imaging of your gallbladder, is recommended. It is recommended to see your primary care provider within a week of discharge to ensure you are still feeling well after returning home and update them on any changes. Referrals to specialty clinics may be placed at this time if needed. It was a pleasure taking care of you! Please call if you have any questions or problems. You can reach a [facility] at [facility] 24 hours a day by calling [phone]. Take care of yourself. Brielle Romero DO [facility] [employer] Provider Instructions: Surgical recommendations: -adherence to strict low fat diet - if you continue to have abdominal pain and issues after eating , can discuss elective gallbladder surgery once you reach your second trimester. - monitor for fever, chills, persistent abdominal pain, nausea , vomiting and if severe report to emergency room for further evaluation Pending Studies at Discharge: No Stand-Alone Forms: My [facility] Medications and DC Order Prescriptions: Continued No Known Home Medications RF: 0 Discharge Orders: Discharge Order (Routine); Ordered 04/29/21 Ordered By: Brielle Gaines/Other Patient Handouts: Low-Fat Cooking Tips, Adding Flavor to Low-Fat Meals, ED Diet, Low Fat Admission Data Admit Date/Time: 04/28/21 02:46 Attending Provider: Brielle Romero Admit Provider: Blas Parr Primary Care Provider: Andrzej Gray Other Providers: Aryan Saravia ; Juan Luis Camilo ; Duran Dunbar ; Anna Jimenez ; Ernestina Tariq ; Santino Ty ; Sylvester Ramey ; Dana Frederick ; Kisha Parra ; Gregorio Taylor Jr ; Teri Reyes ; Edenilson Che ; Imelda Castaneda ; Edwina Long Other Interventions: Discharge Summary Assessment (RN) Last Done: 04/29/21 11:06
== END 2021-04-29 12:03 | disposition home or self-care (01) ==
LOC: 3E 23:44 → ED 23:44 → 3E 04-28 04:52
DX: R11.14 Bilious vomiting; K80.50 Calculus of bile duct without cholangitis or cholecystitis without obstruction; Z3A.08 8 weeks gestation of pregnancy; R10.13 Epigastric pain; R93.3 Abnormal findings on diagnostic imaging of other parts of digestive tract; Z91.048 Other nonmedicinal substance allergy status; O30.001 Twin pregnancy, unspecified number of placenta and unspecified number of amniotic sacs, first trimester; Z20.822 Contact with and (suspected) exposure to COVID-19